=== PATIENT | female | born 1935 | race Caucasian/White ===

== ENCOUNTER → 2020-03-13 | Outpatient (CLI) | payer MEDICARE, OTHER ==
--- NOTE | 2020-03-13 17:26 | RAD ---
EXAM: NM PET/CT SKULL BASE TO MID THIGH EXAM DATE: 03/13/2020 INDICATION: Lymphadenopathy RADIOPHARMACEUTICAL: 11.52 mCi of F-18 Fluorodeoxyglucose (FDG) I.V. via the left wrist. TECHNIQUE: Patient weight: 205 pounds. Following at least four-hour fasting, the patient's blood gluc ose was 135 mg/dl. Approximately 1 hour after administration of FDG, overlapping emission scanning w as performed from the orbital meatal line through the pelvis. A low-dose CT was performed for attenu ation correction purposes and anatomic localization. Fused images of PET and CT were reviewed. Any s tandardized uptake values (SUV) reported are maximum values within a volume region of interest, expre ssed in gm/ml. COMPARISON: Abdomen and pelvis CT of 10/01/2019 FINDINGS: PET: Background mediastinal activity shows a max SUV of 3.27. Background hepatic activity shows a max SUV of 3.64. The mildly enlarged mesenteric nodes noted on previous CT remain present, including periportal and pe riceliac nodes as well as ileocolic chain lymph nodes. These do not however show abnormal FDG uptake. There is otherwise no abnormal FDG uptake in the included field of view CT: Mild enlargement of mediastinal lymph nodes to a short axis of 12 mm in the right lower paratracheal travis station is present. Otherwise, no thoracic adenopathy. Calcified right hilar lymph nodes are pr esent. Lungs show multiple noncalcified pulmonary nodules, none of which show numerous FDG uptake. These inc lude a 6 mm short axis (image 150 series 3) right middle lobe nodule, a 10 mm right lower lobe nodule (image 132 of series 3) and smaller additional nodules that are difficult to assess given respirator y motion artifact. No pleural effusion. No pneumothorax. Chest wall is unremarkable. Abdomen shows cholecystectomy. The liver, spleen, pancreas, left adrenal gland are unremarkable. Righ t adrenal gland contains a lateral limb 9 mm nodule showing no abnormal FDG uptake. Bowel shows scatt ered colonic But no obvious wall thickening or inflammatory stranding. No evidence of obstruction or perforation.. There is a small hiatal hernia present. Adenopathy in the retroperitoneum and mesentery noted previo usly is stable to marginally increased. For example, the ileocolic lymph nodes previously measured up to 7 mm in short axis but now measure 10 mm. IMPRESSION: 1. Persistent mesenteric and retroperitoneal mild lymphadenopathy, in some cases worsening slightly b ut showing no abnormal FDG uptake. No additional abnormal sites of uptake identified to suggest an FD G avid process. 2. Evidence of previous granulomatous disease with a few scattered noncalcified pulmonary nodules as described. Largest measures 10 mm in the right lower lobe. Given that they are not hypermetabolic on PET CT, consider follow-up in 18-24 months from the 10/01/2019 comparison study to establish longer te rm stability or resolution. Electronically signed by: Ree Briceno MD (03/13/2020 5:24 PM) [id number]
== END ==
LOC: PETSC 09:56
PROVIDERS: ATTEND Family Medicine
DX: R91.1 Solitary pulmonary nodule (principal); R59.1 Generalized enlarged lymph nodes; Z90.49 Acquired absence of other specified parts of digestive tract
CPT/HCPCS: 78815; A9552